=== PATIENT | male | born 1985 | race Caucasian/White ===

== ENCOUNTER 2020-09-17 20:02 | Inpatient (IN) | payer OTHER ==
[2020-09-17] MEDS ORDERED: CYCLOBENZAPRINE 10 MG TAB PO STA (20:48)
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
--- NOTE | 2020-09-17 21:31 | XR ---
EXAMINATION TYPE: XR wrist complete BILATERAL DATE OF EXAM: 09/17/2020 COMPARISON: NONE HISTORY: Pain TECHNIQUE: 8 views FINDINGS: I see no fracture nor dislocation. Carpal bones are intact. Joint spaces are normal. Soft t issues appear normal. IMPRESSION: Negative bilateral wrist exam.
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
[2020-09-17] MEDS ORDERED: NALOXONE 0.4 MG/ML 1 ML VIAL IV PRN (23:10)
[2020-09-18] MEDS: HYDROcodone/APAP 5-325MG 1 EACH TAB PO PRN ×2 (00:44→07:42)
[2020-09-18] MEDS: CYCLOBENZAPRINE 10 MG TAB PO SCH ×3 (07:42→21:10)
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
[2020-09-18] MEDS ORDERED: SENNOSIDES 8.6 MG TAB PO PRN (09:04)
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
[2020-09-18 19:21] LABS: Prothrombin Time 10.3 sec (9.0-12.0)
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
[2020-09-18 23:18] LABS: Basophils # (A) 0.1 k/uL (0-0.2); Basophils % (A) 1 %; Eosinophils # (A) 0.3 k/uL (0-0.7); Eosinophils % (A) 3 %; HCT 43.6 % (39.0-53.0); HGB 14.3 gm/dL (13.0-17.5); Lymphocytes # (A) 2.7 k/uL (1.0-4.8); Lymphocytes % (A) 31 %; MCH 28.6 pg (25.0-35.0); MCHC 32.8 g/dL (31.0-37.0); MCV 87.3 fL (80.0-100.0); Mean Platelet Volume 7.9; Monocytes # (A) 0.6 k/uL (0-1.0); Monocytes % (A) 6 %; Neutrophils # (A) 5.1 k/uL (1.3-7.7); Neutrophils % (A) 57 %; Platelet Count 244 k/uL (150-450); RBC 4.99 m/uL (4.30-5.90); RDW 13.5 % (11.5-15.5); WBC 8.9 k/uL (3.8-10.6)
[2020-09-18 23:27] LABS: ALT 25 U/L (4-49); AST 21 U/L (17-59); African American GFR (CKD) >90 (>60 ml/min/1.73 sqM); Albumin 4.1 g/dL (3.5-5.0); Alkaline Phosphatase 86 U/L (38-126); Anion Gap 7 mmol/L; Blood Urea Nitrogen 15 mg/dL (9-20); Carbon Dioxide 26 mmol/L (22-30); Chloride 104 mmol/L (98-107); Glucose 106 mg/dL (74-99); Non-African American GFR(CKD) >90 (>60 ml/min/1.73 sqM); Potassium 3.8 mmol/L (3.5-5.1); Sodium 137 mmol/L (137-145); Total Bilirubin 0.3 mg/dL (0.2-1.3); Total Protein 7.2 g/dL (6.3-8.2)
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
[2020-09-19] MEDS: CYCLOBENZAPRINE 10 MG TAB PO SCH ×3 (08:37→20:53)
[2020-09-19 09:26] LABS: Basophils # (A) 0.1 k/uL (0-0.2); Basophils % (A) 1 %; Eosinophils # (A) 0.2 k/uL (0-0.7); Eosinophils % (A) 2 %; HCT 45.4 % (39.0-53.0); HGB 14.7 gm/dL (13.0-17.5); Lymphocytes % (A) 26 %; MCH 28.4 pg (25.0-35.0); MCHC 32.3 g/dL (31.0-37.0); MCV 87.8 fL (80.0-100.0); Mean Platelet Volume 7.7; Monocytes # (A) 0.4 k/uL (0-1.0); Monocytes % (A) 6 %; Neutrophils # (A) 4.9 k/uL (1.3-7.7); Neutrophils % (A) 64 %; Platelet Count 239 k/uL (150-450); RBC 5.17 m/uL (4.30-5.90); RDW 13.5 % (11.5-15.5); WBC 7.7 k/uL (3.8-10.6)
[2020-09-19 09:34] LABS: African American GFR (CKD) >90 (>60 ml/min/1.73 sqM); Anion Gap 6 mmol/L; Blood Urea Nitrogen 14 mg/dL (9-20); Calcium 8.9 mg/dL (8.4-10.2); Carbon Dioxide 28 mmol/L (22-30); Chloride 103 mmol/L (98-107); Glucose 106 mg/dL (74-99); Non-African American GFR(CKD) >90 (>60 ml/min/1.73 sqM); Potassium 4.8 mmol/L (3.5-5.1); Sodium 137 mmol/L (137-145)
[2020-09-19] MEDS ORDERED: HYDROmorphone 0.5 MG/0.5 ML SYRINGE IVP PRN (10:26)
[2020-09-19] MEDS ORDERED: LIDOCAINE 1% (10MG/ML) FOR IV START INTRADERMA PRN (10:26)
[2020-09-19] MEDS ORDERED: ONDANSETRON 4 MG/2 ML VIAL IVP ONE (10:26)
[2020-09-19] MEDS ORDERED: DEXAMETHASONE SOD PHOSPHATE 10 MG/ML 1 ML VIAL IV ONE (10:26)
[2020-09-19] MEDS ORDERED: MIDAZOLAM 2 MG/2 ML VIAL IV PRN (10:26)
[2020-09-19] MEDS ORDERED: LACTATED RINGERS 1,000 ML IV SCH (10:26)
[2020-09-19] MEDS ORDERED: ACETAMINOPHEN TAB 500 MG TAB ONE (11:01)
[2020-09-19 11:02] LABS: ALT 26 U/L (4-49); AST 22 U/L (17-59); Albumin 3.9 g/dL (3.5-5.0); Alkaline Phosphatase 87 U/L (38-126); Magnesium 2.1 mg/dL (1.6-2.3); Total Bilirubin 0.6 mg/dL (0.2-1.3); Total Protein 7.4 g/dL (6.3-8.2)
[2020-09-19] MEDS ORDERED: GABAPENTIN 300 MG CAP PO ONE (11:03)
[2020-09-19] MEDS ORDERED: ACETAMINOPHEN TAB 500 MG TAB PO ONE (11:03)
[2020-09-19] MEDS ORDERED: HYDROmorphone (PF) 1 MG/ML ONE (12:10)
[2020-09-19] MEDS ORDERED: LIDOCAINE 1% INJ 10MG/ML (20 ML MDV) ONE (12:10)
[2020-09-19] MEDS ORDERED: PROPOFOL 10 MG/ML 20 ML VIAL IV ONE (12:10)
[2020-09-19] MEDS ORDERED: SUCCINYLCHOLINE CHLORIDE VIAL 200 MG/10 ML VIAL IV ONE (12:10)
[2020-09-19] MEDS ORDERED: KETAMINE 10 MG/ML 20 ML VIAL ONE (12:10)
[2020-09-19] MEDS ORDERED: fentaNYL (PF) 50 MCG/ML 2 ML AMP ONE (12:10)
[2020-09-19] MEDS ORDERED: MIDAZOLAM 2 MG/2 ML VIAL ONE (12:10)
[2020-09-19] MEDS: ceFAZolin 3 GM in SODIUM CHLORIDE 0.9% 100 ML IVPB ONE ×2 (12:16→13:28)
[2020-09-19] MEDS ORDERED: BUPIVACAINE (PF) 0.5% 30 ML VIAL SQ ONE (13:26)
[2020-09-19] MEDS ORDERED: LIDOCAINE 2%-EPI 1:100,000 20 ML VIAL SQ ONE (13:27)
[2020-09-19] MEDS ORDERED: LACTATED RINGERS 1,000 ML IV ONE (14:04)
--- NOTE | 2020-09-19 15:25 | FL ---
EXAMINATION TYPE: FL guidance operating room, XR cervical spine 1V DATE OF EXAM: 09/19/2020 CLINICAL HISTORY: Neck pain. C5 fracture. TECHNIQUE: Fluoroscopy. Intraoperative single view cervical spine. COMPARISON: MRI cervical spine September 18, 2020.. FINDINGS: Fluoroscopic guidance was provided during cervical fusion procedure performed by Dr. Denae perez. A total of 49 seconds of fluoroscopic time was utilized during the procedure and two spot int raoperative images are acquired. Intraoperative images obtained show portion of the anterior fusion plate over 2 segments with difficu lty evaluating the exact location or level. IMPRESSION: As Above.
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
[2020-09-19] MEDS: 0.9% NACL WITH KCL 20 MEQ/L 1,000 ML IV SCH (17:21)
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
--- NOTE | 2020-09-19 17:41 | P.PN ---
Progress Note - Text Progress Note Date: 09/19/20 Pt was s/e in the PACU. He is awake, but groggy still. Able to answer all questions. Moving all 4 ext with full strength. SILT C5-T1 and L2-S1. Palpable distal pulses. Compartments soft and compressive. Normal reflexes. VSS at this time. Pt will be sent to the floor per anesthesia staff and PACU staff when stable.
--- NOTE | 2020-09-19 20:28 | CT ---
EXAMINATION TYPE: CT cervical spine wo con DATE OF EXAM: 09/19/2020 COMPARISON: 09/17/2020. HISTORY: Post op cervical fusion CT DLP: 620.9 mGycm Automated exposure control for dose reduction was used. TECHNIQUE: CT scan of the cervical spine is obtained without contrast, axial images are obtained, sa gittal and coronal reformatted images are also reviewed. FINDINGS: There are interval post surgical changes of C5-C6 anterior cervical discectomy and fusion for treatme nt of a previous C5 left facet fracture. Alignment is anatomic. No new fracture or subluxation. There is paravertebral soft tissue emphysema, greater on the right and extending to the chest. A right nec k surgical drain is in place. No significant fluid collection. The airways are patent. The visualized lung apices are clear. IMPRESSION: Status post C5-C6 ACDF with drain in place. Right predominant paravertebral soft tissue emphysema, most consistent with postsurgical change. No s ignificant fluid collection.
[2020-09-19] MEDS: ceFAZolin 3 GM in SODIUM CHLORIDE 0.9% 100 ML IVPB SCH (20:53)
[2020-09-19] MEDS: HYDROcodone/APAP 5-325MG 1 EACH TAB PO PRN (21:54)
[2020-09-20] MEDS: HYDROcodone/APAP 7.5-325MG 1 EACH TAB PO PRN ×2 (00:11→08:59)
[2020-09-20] MEDS: ceFAZolin 3 GM in SODIUM CHLORIDE 0.9% 100 ML IVPB SCH (03:00)
[2020-09-20 06:47] LABS: Basophils % (A) 0 %; Eosinophils # (A) 0.1 k/uL (0-0.7); Eosinophils % (A) 0 %; HCT 41.8 % (39.0-53.0); HGB 13.5 gm/dL (13.0-17.5); Lymphocytes # (A) 1.5 k/uL (1.0-4.8); Lymphocytes % (A) 11 %; MCH 28.4 pg (25.0-35.0); MCHC 32.3 g/dL (31.0-37.0); MCV 87.7 fL (80.0-100.0); Mean Platelet Volume 7.7; Monocytes # (A) 0.7 k/uL (0-1.0); Monocytes % (A) 5 %; Neutrophils # (A) 11.8 k/uL (1.3-7.7); Neutrophils % (A) 83 %; Platelet Count 253 k/uL (150-450); RBC 4.77 m/uL (4.30-5.90); RDW 13.4 % (11.5-15.5); WBC 14.3 k/uL (3.8-10.6)
[2020-09-20] MEDS ORDERED: DEXAMETHASONE SOD PHOSPHATE 10 MG/ML 1 ML VIAL IV STA (07:28)
[2020-09-20] MEDS ORDERED: ONDANSETRON 4 MG/2 ML VIAL IVP STA (07:31)
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
[2020-09-20] MEDS: CYCLOBENZAPRINE 10 MG TAB PO SCH (07:51)
[2020-09-20] MEDS: 0.9% NACL WITH KCL 20 MEQ/L 1,000 ML IV SCH (07:52)
[2020-09-20 08:21] VITALS: BP 120/83; PULSE 83; RESP 16; TEMP 99.2
[2020-09-20 09:21] LABS: African American GFR (CKD) 127.8 (60.0-200.0); Anion Gap 7.4 mmol/L (4.00-12.00); BUN/Creat Ratio 15.56 Ratio (12.00-20.00); Calcium 8.7 mg/dL (8.7-10.3); Carbon Dioxide 27.6 mmol/L (21.6-31.8); Non-African American GFR(CKD) 110.3 (60.0-200.0); Potassium 4.3 mmol/L (3.5-5.5)
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
== END 2020-09-20 13:29 | disposition home health service (06) | DRG 30 ==
LOC: EC 20:02 → 1SOBS 23:10 → OBSVTOIN 09-18 08:41 → 4SSUR 09-19 16:25
PROVIDERS: ADMIT Orthopaedic Surgery; ATTEND Orthopaedic Surgery
PROC: 0RB30ZZ Excision of Cervical Vertebral Disc, Open Approach (ICD-10-PCS; principal; 2020-09-19 11:15)
PROC: 0RG10A0 Fusion of Cervical Vertebral Joint with Interbody Fusion Device, Anterior Approach, Anterior Column, Open Approach (ICD-10-PCS; principal; 2020-09-19 11:15)
DX: S14.129A Central cord syndrome at unspecified level of cervical spinal cord, initial encounter (principal); S12.491A Other nondisplaced fracture of fifth cervical vertebra, initial encounter for closed fracture; V53.5XXA Driver of pick-up truck or van injured in collision with car, pick-up truck or van in traffic accident, initial encounter; Y92.410 Unspecified street and highway as the place of occurrence of the external cause; I45.10 Unspecified right bundle-branch block; M50.122 Cervical disc disorder at C5-C6 level with radiculopathy; R20.2 Paresthesia of skin; Q76.49 Other congenital malformations of spine, not associated with scoliosis; M25.78 Osteophyte, vertebrae; S60.211A Contusion of right wrist, initial encounter; Z88.8 Allergy status to other drugs, medicaments and biological substances; Z91.041 Radiographic dye allergy status
CPT/HCPCS: 70450; 72020; 72125; 72128; 72156; 80048; 80053; 83735; 85025; 85610; 99285